=== PATIENT | female | born 1940 ===

== ENCOUNTER 2024-08-04 08:00 | Outpatient (CLI) | payer OTHER ==
[~2024-08-04 08:00] MED LIST: ACTIGALL300 MG
[2024-08-04 08:19] LABS: HEMATOCRIT 37.2 % (36.0-45.00); HEMOGLOBIN 12.5 g/dL (12.0-15.00); MEAN CELL VOLUME 83.8 fL (80.00-100.00); MEAN CORPUSCULAR HEMOGLOBIN 28.1 pg (27.00-32.0); MEAN CORPUSCULAR HGB CONC 33.6 g/dl (32.0-36.0); PLATELET COUNT 280 K/uL (150-450); RED BLOOD COUNT 4.43 M/uL (4.00-6.00); RED CELL DISTRIBUTION WIDTH 14.7 % (11.5-14.5)
[2024-08-04] MEDS ORDERED: LEVO-T50 MCG (08:36)
[2024-08-04] MEDS ORDERED: ANASTROZOLE1 MG (08:36)
[2024-08-04] MEDS ORDERED: GLUMETZA500 MG (08:36)
[2024-08-04] MEDS ORDERED: ADULT LOW DOSE81 M1 (08:37)
[2024-08-04] MEDS ORDERED: LOSARTAN POTASS50 MG (08:37)
[2024-08-04] MEDS ORDERED: SERTRALINE HCL50 MG (08:38)
[2024-08-04] MEDS ORDERED: SIMVASTATIN 20MG (08:38)
[2024-08-04] MEDS ORDERED: ALENDRONATE SOD70 MG (08:39)
[2024-08-04 08:56] LABS: INR 0.99; PARTIAL THROMBOPLASTIN TIME 24.8 SECONDS (22.0-34.0); PROTHROMBIN TIME 10.8 SECONDS (9.0-11.5)
[2024-08-04 09:10] LABS: ALBUMIN 3.9 gm/dL (3.4-5.0); BILIRUBIN TOTAL 0.63 mg/dL (0.3-1.2); CALCIUM 9.7 mg/dL (8.5-10.1); CREATININE SERUM 1.02 mg/dL (0.55-1.02); GFR 51.63; GLOBULINA 3.5 G/DL (2.4-3.5); POTASSIUM 4.08 mEq/L (3.5-5.1); TOTAL PROTEIN 7.4 gm/dL (6.4-8.2)
[2024-08-04 09:35] LABS: URINE APPEARANCE Clear; URINE BILIRRUBIN Negative (NEGATIVE); URINE BLOOD Moderate; URINE COLOR Dark Yellow; URINE GLUCOSE Negative (NEGATIVE); URINE KETONE Trace (NEGATIVE); URINE LEUKOCYTE Moderate; URINE NITRATE Negative; URINE PROTEIN Trace (NEGATIVE)
[2024-08-04 09:37] LABS: URINE BACTERIA 1792.9 uL (0.0-1933); URINE EPITHELIAL CELLS 18.5 uL (0.0-38.8); URINE RBC 3.8 uL (0.0-20.8)
[2024-08-04 09:49] LABS: URINE CAST 0.15 uL (0.0-1.40)
== END 2024-08-04 08:01 | disposition home or self-care (01) ==
LOC: RAD 08:00 → ADM 08:00 → RAD 08:01 → CIR.AMB 08-08 08:45 → EDSTATUS 08-08 08:45 → CIR.AMB 08-08 11:15
PROVIDERS: ATTEND Orthopaedic Surgery Sports Medicine
DX: I10 Essential (primary) hypertension (principal); M65.341 Trigger finger, right ring finger